=== PATIENT | male | born 1980 | race Caucasian/White ===

== ENCOUNTER 2018-04-19 09:16 | Emergency (ER) | payer OTHER ==
[~2018-04-19] VITALS: Ht 188 cm; Wt 120.2 kg
[2018-04-19] MEDS ORDERED: Naprosyn500 MG PO (12:06)
== END 2018-04-19 12:13 | disposition home or self-care (01) ==
LOC: ER 09:16
DX: S93.401A Sprain of unspecified ligament of right ankle, initial encounter (principal); W11.XXXA Fall on and from ladder, initial encounter; Z88.1 Allergy status to other antibiotic agents; Z87.891 Personal history of nicotine dependence
CPT/HCPCS: 73610

== ENCOUNTER 2020-08-26 22:20 | Emergency (ER) | payer BC, OTHER ==
[~2020-08-26] VITALS: Ht 188 cm; Wt 112.0 kg
[~2020-08-26 22:20] MED LIST: Naprosyn500 MG PO
[2020-08-26] MEDS ORDERED: AMBIEN10 MG PO (22:49)
[2020-08-27] MEDS ORDERED: Norco 5-325 Ta1 EACH PO (00:07)
[2020-08-27] MEDS ORDERED: Zofran8 MG PO (02:44)
== END 2020-08-27 00:50 | disposition home or self-care (01) ==
LOC: ER 22:20
DX: T23.242A Burn of second degree of multiple left fingers (nail), including thumb, initial encounter (principal); Z88.1 Allergy status to other antibiotic agents; Z23 Encounter for immunization; Z79.899 Other long term (current) drug therapy; X08.8XXA Exposure to other specified smoke, fire and flames, initial encounter
CPT/HCPCS: 16020; 90471; 90714; 96374-59; 99283-25; A9270; J1170